=== PATIENT | male | born 1990 | race Two or more races ===

== ENCOUNTER 2021-12-13 20:39 | Emergency (ER) | payer OTHER ==
[2021-12-13 21:30] LABS: HEMOGLOBIN 14.7 gm/dl (14.0-17.5); RED BLOOD COUNT 4.7 M/UL (4.20-5.50); WHITE BLOOD COUNT 8.4 K/UL (4.5-11.0)
[2021-12-13 21:46] LABS: BUN/CREATININE RATIO 13 (0-10)
[2021-12-14] MEDS ORDERED: PROTONIX40 MG PO (01:54)
[2021-12-14] MEDS ORDERED: ONDANSETRON ODT4 MG SL (01:54)
[2021-12-14] MEDS ORDERED: NAPROSYN500 MG PO (01:54)
== END 2021-12-14 02:03 | disposition home or self-care (01) ==
LOC: ER1 20:39
PROVIDERS: Physician Assistant
DX: K80.70 Calculus of gallbladder and bile duct without cholecystitis without obstruction (principal); R73.9 Hyperglycemia, unspecified
CPT/HCPCS: 80053; 81001; 83690; 85025; 93005; 96361; 96374; 96375; 96376; 99284; C9113; J1170; J1885; J2270; J2405; Q9967